=== PATIENT | female | born 1990 | race Caucasian/White ===

== ENCOUNTER 2021-05-19 05:07 | Inpatient (IN) | payer SELFPAY ==
[2021-05-19] VITALS (17 sets, daily range): BP systolic 92–121; BP diastolic 56–71; PULSE 56–82; RESP 14–24; TEMP 36.3–37.2; O2SAT 94–100; BMI 23.5
--- NOTE | 2021-05-19 05:15 | W.ED.ABDPA2 ---
HPI - Abdominal Pain General: Chief Complaint: Abdominal Pain Stated Complaint: PELVIC PAIN/ VAGINAL BLEEDING Time Seen by Provider: 05/19/21 05:08 Source: patient and EMS Mode of arrival: EMS Limitations: no limitations History of Present Illness: HPI narrative: 30-year-old female who G1, P0 states she is roughly 6 7 weeks . Patient transferred here from [facility] for ectopic . Patient there had an ultrasound that showed complex mass the left ovary without intrauterine and had fluid in the cul-de-sac. Patient was accepted here by our OB physician Dr. Dent. Patient states her pain is currently a 2 out of 10 after fentanyl. She had no vomiting or diarrhea or syncope. Associated Symptoms: Denies chills, dysuria and fever(s) Review of Systems Const: Denies: fever(s), chills, body aches or change in appetite Eyes: Denies: blurry vision or eye discomfort ENMT: Denies: throat pain or dental pain Card: Denies: chest pain Resp: Denies: dyspnea GI: Reports: abdominal pain : Denies: dysuria Musc: Denies: neck pain or back pain Skin/Breast: Denies: rash Neuro: Denies: headache(s) Psych: Denies: depression Michele/Lymph: Denies: easy bruising All/Imm: Denies: urticaria Physical Exam Const: COMMON NORMALS: no acute distress, patient oriented x3 and healthy appearing HENMT: COMMON NORMALS: normocephalic and atraumatic HEAD & SCALP: normocephalic and atraumatic Eye: COMMON NORMALS: Equal, round and reactive pupils present and EOMs intact bilaterally PUPIL: Yes Equal, round and reactive pupils present Neck/C-Spine: COMMON NORMALS: full ROM and supple Chest: COMMONS NORMALS: normal inspection of the chest and normal palpation of entire chest wall Resp: COMMON NORMALS: normal respiratory effort, No retractions, No use of accessory muscles and clear to auscultation bilaterally AUSCULTATION: clear to auscultation bilaterally Cardio: COMMON NORMALS: regular rate, regular rhythm and No murmurs present (Cardio) RATE: regular rate RHYTHM: regular rhythm GI: COMMON NORMALS: Normal to inspection, nondistended, normoactive bowel sounds present, Soft to palpation, non-tender and no masses PALPATION: Yes Soft to palpation OTHER: lower abdominal tenderness Extremity: COMMON NORMALS: normal to inspection and full ROM Neuro: COMMON NORMALS: patient oriented x3, moves all extremities and no focal motor deficits Psych: COMMON NORMALS: mental status grossly normal, Normal thought process present and cooperative THOUGHT PROCESS: Normal thought process present Skin: COMMON NORMALS: no rashes or lesions noted and no wounds GENERAL SKIN EXAM: no rashes or lesions noted Course Vital Signs: Vital signs: Vital Signs Temperature 97.3 F L 05/19/21 05:07 Pulse Rate 82 05/19/21 05:07 Respiratory Rate 16 05/19/21 05:07 Blood Pressure 103/58 05/19/21 05:07 Pulse Oximetry 99 05/19/21 05:07 MDM - Abdominal Pain MDM Narrative: Medical decision making narrative: Patient presents here with a likely ectopic . Patient is being taken to the OR by Dr. Dent. Patient is stable here with a normal blood pressure. Discharge Plan Discharge Patient Disposition: Admitted As Inpatient Clinical Impression: Ectopic Qualifiers: Location of ectopic : unspecified location Intrauterine status: without intrauterine Qualified Code(s): O00.90 - Unspecified ectopic without intrauterine Condition: Stable Coding Level of Care Code ED General Manager [employer] for Neelima Deras
[2021-05-19 05:21] LABS: Basophils # 0.1 10^3/uL (0.0-0.1); Basophils % 0.4 %; Eosinophils # 0.1 10^3/uL (0.0-0.8); Eosinophils % 0.5 %; Hematocrit 30.7 % (37.0-47.0); Hemoglobin 9.9 g/dL (11.5-15.3); Lymphocytes # 2.2 10^3/uL (0.8-4.8); Lymphocytes % 18.1 %; Mean Corpuscular HGB Conc 32.2 g/dL (30.0-36.0); Mean Corpuscular Hemoglobin 30.6 pg (28.0-34.0); Mean Corpuscular Volume 94.8 fL (81-99); Mean Platelet Volume 9.7 fL (7.4-10.4); Monocytes # 0.9 10^3/uL (0.2-0.9); Monocytes % 7.6 %; Neutrophils # 8.79 10^3/uL (1.8-7.7); Neutrophils % 73.1 %; Nucleated Red Blood Cells % 0 %; Platelet Count 232 10^3/cmm (130-400); Red Blood Count 3.24 10^6/uL (4.1-5.3); Red Cell Distribution Width 12.7 % (12.1-15.1)
--- NOTE | 2021-05-19 05:38 | PM.CONSULT ---
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 She reports that she has not started care yet. She had a positive test and started spotting about 3 weeks ago. Tonight, her bleeding increased a little bit, but she had increased pain. she had two ultrasounds which showed a likely left ectopic . The last ultrasound showed a hemoperitoneum. She was transferred her for surgery. She denies any medical problems. Review of Systems General: Reports: 10 or more systems reviewed and unremarkable except in HPI and below Meds/Allergies Home Medications and Allergies Home Medications Medication Instructions Recorded Confirmed Last Taken Type No Known Home Medications 05/19/21 05/19/21 Unknown History Allergies Allergy/AdvReac Type Severity Reaction Status Date / Time No Known Allergies Allergy Verified 05/19/21 05:13 [facility] Acute Female Reproductive History: : 1 Vitals/I&O/Wt Last Vital Signs Temp 97.3 F L 05/19/21 05:07 Pulse 82 05/19/21 05:07 Resp 16 05/19/21 05:07 BP 103/58 05/19/21 05:07 Pulse Ox 99 05/19/21 05:07 Weight last 48 hrs Weight 150 lb Physical Exam Const: COMMON NORMALS: average body habitus, patient oriented x3, no limitations, healthy appearing, alert and well nourished GENERAL APPEARANCE: cooperative, well kempt, well developed and well hydrated; not comfortable NUTRITIONAL APPEARANCE: thin ORIENTATION/CONSCIOUSNESS: Yes awake, Yes oriented to place and Yes oriented to time Neck/C-Spine: COMMON NORMALS: full ROM and supple Resp: COMMON NORMALS: normal respiratory effort EFFORT & INSPECTION: Yes able to speak in complete sentences Cardio: COMMON NORMALS: regular rate and regular rhythm RATE: regular rate RHYTHM: regular rhythm GI: INSPECTION: Yes normal to inspection PALPATION: Yes Firmness to palpation present (GI), Yes Tenderness to palpation present (GI), Yes Guarding due to palpation present (GI) and Yes Other GI palpation findings present (+ rebound tenderness on left) Extremity: COMMON NORMALS: no clubbing, cyanosis or edema and no calf tenderness Neuro: COMMON NORMALS: patient oriented x3 SENSORIUM/ORIENTATION: Yes alert, Yes oriented to place and Yes oriented to time Psych: COMMON NORMALS: mental status grossly normal, Normal thought process present, cooperative, normal affect, speech normal and activity/motor behavior normal APPEARANCE: Yes grossly normal and Yes well kempt ATTITUDE: Yes calm and Yes engaged ACTIVITY/MOTOR BEHAVIOR: Yes appropriate eye contact SPEECH: Yes normal speech THOUGHT PROCESS: Normal thought process present A&P Assessment and plan (1) Ectopic : Plan laparoscopic removal of left ectopic Status: Acute Qualifiers: Intrauterine status: without intrauterine Location of ectopic : unspecified location Qualified Code(s): O00.90 - Unspecified ectopic without intrauterine Coding Level of Care Code Acute City Auditor for Chg Fwd Diagnoses Ectopic O00.90 Intrauterine status: without intrauterine Location of ectopic : unspecified location
[2021-05-19 05:43] LABS: Alanine Aminotransferase 7 U/L (0-33); Albumin Level 3.6 g/dL (3.5-5.2); Alkaline Phosphatase 56 IU/L (35-105); Anion Gap 10.9 (5-19); Aspartate Amino Transferase 14 U/L (0-32); Blood Urea Nitrogen 8 mg/dL (6-20); Calcium 7.9 mg/dL (8.5-10.5); Carbon Dioxide 23 mmol/L (22-29); Chloride 106 mmol/L (98-107); Globulin 2.5 g/dL (1.3-4.6); Glucose 106 mg/dL (65-115); Osmolality Calculated 281 mOsm/kg (285-295); Potassium 3.9 mmol/L (3.5-5.1); Sodium 136 mmol/L (136-145); Total Bilirubin 0.6 mg/dL (0.15-1.2); Total Protein 6.1 g/dL (6.6-8.7)
--- NOTE | 2021-05-19 06:14 | ANES.PREANE2 ---
Pre-Anesthetic Assessment Pre-Anesthetic Assessment: Height/Weight: Height 1.7 m Weight 68.039 kg Temp Pulse Resp BP Pulse Ox 97.3 F L 82 16 92/58 99 05/19/21 05:07 05/19/21 05:07 05/19/21 05:07 05/19/21 05:52 05/19/21 05:07 Preop Diagnosis: ruptured ectopic Proposed Procedure: Operation Date: 05/19/21 06:30 Proposed Procedures p Laparoscopic Ovarian Cystectomy(Not Applicable) - Jie Dent MD Familial anesthetic complications: None Was Beta Tonie taken within 24 hours: N/A Was Clonidine taken within 24 hours: N/A Last intake: NPO > 8hrs Social: Social History: No alcohol and No tobacco Exam: Pre-Anes Outpt Exam: alert, oriented x 3, clear to auscultation bilaterally and regular rate & rhythm Airway: Cervical ROM: WNL MP: 1 Dentition: Full Anesthetic Plan: ASA status: 1E Anesthesia: General Risk of > 500 ml blood loss (7ml/kg in children): No PFSH Anesthesia Female Reproductive History: : 1 Data Anesthesia CBC & Chem 7: 05/19/21 05:12 05/19/21 05:12 Other Labs: Laboratory Results - last 48 hr 05/19/21 05/19/21 05:12 05:12 WBC 12.0 H RBC 3.24 L Hgb 9.9 L Hct 30.7 L MCV 94.8 MCH 30.6 MCHC 32.2 RDW 12.7 Plt Count 232 MPV 9.7 Neut % (Auto) 73.1 Lymph % (Auto) 18.1 [place] % (Auto) 7.6 Eos % (Auto) 0.5 Baso % (Auto) 0.4 Neut # (Auto) 8.79 H Lymph # (Auto) 2.2 [place] # (Auto) 0.9 Eos # (Auto) 0.1 Baso # (Auto) 0.1 Nucleated RBC % (auto) 0 Nucleated RBCs # 0.0 Sodium 136 Potassium 3.9 Chloride 106 Carbon Dioxide 23 Anion Gap 10.9 BUN 8 Creatinine 0.5 GFR Calculation 143.0 H Glucose 106 Calculated Osmolality 281 L Calcium 7.9 L Total Bilirubin 0.6 AST 14 ALT 7 Alkaline Phosphatase 56 Total Protein 6.1 L Albumin 3.6 Globulin 2.5 Cardiac Studies: No Data to Display
--- NOTE | 2021-05-19 09:24 | PM.OP ---
Operative Report Date of procedure: May 19, 2021 Pre-op Diagnosis: ruptured ectopic Post-op diagnosis: same Post-op Findings: Ruptured left ectopic . Severe pelvic adhesions likely due to endometriosis Procedure Done: laparoscopy, converted to laparotomy and left salpingectomy Specimens removed/disposition: left fallopian tube to pathology Surgeon: Jie Dent Anesthesia: General Estimated blood loss (mL): 100 IV fluids (mL): 1,400 Urine output (mL): 1,000 Complications: none Findings: severe pelvic adhesions of bowel, abdominal wall, uterus, tubes and ovaries. difficulty determining structures due to pelvic adhesions. Condition: stable Disposition: floor Brief History: The patient presented from an [facility] for a suspected ruptured ectopic Procedure: The patient was taken to the operating room where general anesthesia was administered and found to be adequate. She was prepped and draped in the normal sterile fashion in the dorsal lithotomy position in [facility]. A weighted speculum was placed into the vagina and the anterior lip of the cervix grasped with a single-tooth tenaculum. A ZUMI uterine manipulator was placed. A Solorzano catheter was placed. The weighted speculum was removed. Attention was turned to the abdomen after the gloves were changed. A 5 mm infraumbilical incision was made and carried down to the underlying layer of fascia. In spite of several attempts, I was unable to place the 5 mm trocar into the abdomen. A larger incision was made. The fascia was grasped and a 10 mm Briseno sleeve was placed. The pelvis was visualized and found to be full of blood. A 5 mm port was placed on the left. Due to the extensive adhesions, the incision was too close to the pelvis. It was removed and a higher trocar was placed. The pelvis was copiously irrigated the the clotted blood removed. The adhesions were so dense that the anatomy could not be identified. The decision was made to open the patient. The trochars were removed under direct visualization and the abdomen desufflated. The uterine manipulator was removed as well. The Solorzano catheter was left in place.. The fascia was closed with O-Vicryl in the abdominal incision. The other incisions were closed using 3-0 Vicryl and skin glue. A small Pfannenstiel skin incision was made and carried down to the underlying layer of fascia. The fascia was nicked in the midline and extended laterally with the [place] scissors. The fascia was then tented up and the rectus muscles dissected off sharply. The rectus muscles were in the midline and the abdomen entered bluntly with the digit. This peritoneal incision was extended superiorly and inferiorly with good visualization of the bladder. The blood and clot were suctioned from the abdomen. I could not see properly and there was continued bleeding. The incision was extended to a full Pfannenstiel. The O'Marco A-O'Fonseca retractor was placed and the bowel packed away. There were dense adhesions of the bowel and all pelvic structures to each other and the pelvic sidewall as well as the abdomen. I could make out the fimbria of the left fallopian tube and the remainder of the structures weren't identifiable due to adhesions. The fallopian tube was dissected off of the pelvic sidewall. The POC were extruded from the tube and sent to pathology. The fallopian tube was clamped, cut and suture ligated. There was excellent hemostasis. The pelvis was copiously irrigated. The right adnexa could not be identified due to dense adhesions. The uterus appeared to be normal, but densely adherent to the right pelvic sidewall. The O'Marco A-O'Fonseca retractor as well as the packing was removed. The peritoneum was closed with 2-0 Monocryl in a running fashion. The fascia was closed with 0 Vicryl in a running fashion with 2 separate sutures overlapping in the midline. The skin was closed with absorbable triston. The patient tolerated the procedure well. Sponge lap and needle counts were correct x2. She was taken to the recovery room in stable condition.
[2021-05-19] MEDS: fentaNYL 50 mcg/mL INJ 2mL IVP ×2 (10:00→10:05)
[2021-05-19] MEDS: ketorolac 30 mg/mL INJ IVP ×3 (11:15→22:05)
[2021-05-19] MEDS: HYDROcodone-acetaminophen 5-325 mg Tablet PO (11:15)
[2021-05-19] MEDS: dextrose 5%-lactated ringers 1,000 ML 125 ML IV (13:53)
[2021-05-19] MEDS: docusate sodium 100 mg Capsule PO (17:47)
[2021-05-20 03:48] VITALS: BP 94/62; PULSE 80; RESP 18; TEMP 37.2; O2SAT 99
[2021-05-20] MEDS: ketorolac 30 mg/mL INJ IVP (03:54)
[2021-05-20 05:24] LABS: Hematocrit 23.8 % (37.0-47.0); Hemoglobin 7.8 g/dL (11.5-15.3); Mean Corpuscular HGB Conc 32.8 g/dL (30.0-36.0); Mean Corpuscular Hemoglobin 31.1 pg (28.0-34.0); Mean Corpuscular Volume 94.8 fL (81-99); Mean Platelet Volume 10.4 fL (7.4-10.4); Platelet Count 142 10^3/cmm (130-400); Red Blood Count 2.51 10^6/uL (4.1-5.3); Red Cell Distribution Width 13.1 % (12.1-15.1); White Blood Count 13.4 10^3/uL (4.0-10.0)
--- NOTE | 2021-05-20 07:30 | PC.NURSE ---
Dr. Dent at bedside at this time. Dr. Dent removed dressing. Dr. Dent asked pt if she would like to go home, pt reported, yes, I would like to if I can. Dr. Luevano reported she would discharge pt. Dr. Luevano discussed with pt that she should not lift anything heavy, nothing heavier than a gallon of milk. This nurse asked Dr. Dent if pt should be on pelvic rest for 6 weeks, Dr. Dent responded, oh yes, most definitely, that should be in the post op instructions. No other education was provided at this time.
--- NOTE | 2021-05-20 07:51 | P.DS_ITS ---
Discharge Providers Date of Admission: 05/19/21 09:48 Date of Discharge: May 20, 2021 Attending Provider at Admission: Jie Dent MD Attending Provider at Discharge: Jie Dent MD Diagnoses at Discharge Discharge Diagnosis (1) Ectopic : Status: Acute Qualifiers: Intrauterine status: without intrauterine Location of ectopic : unspecified location Qualified Code(s): O00.90 - Unspecified ectopic without intrauterine Reason for Visit Reason for Visit: PELVIC PAIN/ VAGINAL BLEEDING Hospital Course Hospital Course The patient was admitted from the ER for emergent surgery. she had exploratory laparoscopy which was converted to laparotomy due to severe endometriosis. She did well postoperatively and requested discharge on day #1 Physical Exam Narrative: EXAM NARRATIVE: The patient is doing well today. She is requesting discharge. She is tolerating a regular diet. She states that her pain is well controlled. Const: COMMON NORMALS: no acute distress, average body habitus, patient oriented x3, no limitations, healthy appearing, alert and well nourished GENERAL APPEARANCE: cooperative, comfortable, well kempt and well developed ORIENTATION/CONSCIOUSNESS: Yes awake, Yes oriented to person, Yes oriented to place and Yes oriented to time Resp: COMMON NORMALS: normal respiratory effort EFFORT & INSPECTION: Yes able to speak in complete sentences GI: COMMON NORMALS: Soft to palpation and non-tender PALPATION: Yes Soft to palpation Extremity: COMMON NORMALS: no clubbing, cyanosis or edema and no calf tenderness Neuro: COMMON NORMALS: patient oriented x3 SENSORIUM/ORIENTATION: Yes alert, Yes oriented to person, Yes oriented to place and Yes oriented to time Psych: APPEARANCE: Yes well kempt Skin: WOUNDS: Yes surgical site (clean/dry/intact) Urinary Catheter Management^: F: Cath Placed During This Visit: yes, but has since been removed by the nurse Reason for Continuing Indwelling Catheter: Decision to DC Catheter Urinary Catheter Date of Insertion: 05/19/21 Urinary Catheter Time of Insertion: 07:02 Date Urinary Catheter Removed: 05/20/21 Time Urinary Catheter Discontinued: 04:00 Discharge Data Data Completed and Pending: Pending at discharge Category Date Time Status ES surgery / GI i mages Routine Exams 05/19/21 05:59 Taken Pathology: Surgic al [PTH] Routine Pth 05/19/21 09:46 Ordered Labs from last 24 hours 05/20/21 05:14 WBC 13.4 H RBC 2.51 L Hgb 7.8 L Hct 23.8 L MCV 94.8 MCH 31.1 MCHC 32.8 RDW 13.1 Plt Count 142 MPV 10.4 Vitals: Last Vital Signs Temp 99.0 F 05/20/21 03:48 Pulse 80 05/20/21 03:48 Resp 18 05/20/21 03:48 BP 94/62 05/20/21 03:48 Pulse Ox 99 05/20/21 03:48 Discharge Plan Discharge Patient Disposition: Home Condition: Stable Prescriptions: New hydrocodone-acetaminophen 5-325 mg Tablet 1 tab PO Q4H PRN (Reason: Moderate To Severe Pain) Qty: 30 RF: 0 Discharge Orders: Discharge Order (Routine); Ordered 05/20/21 Ordered By: Jie Dent Referrals: Jie Dent MD [Physician] - (You have a one week post op appointment with Dr. Dent on Thursday May 27, 2021 at 7:45 am. You have a 6 week post op appointment with Dr. Dent on Thursday at 8:30 am.) Discharge Diet: Usual diet Discharge Activity: Limit activity as instructed Patient Instructions: Iron Supplements (By mouth), Hydrocodone/Acetaminophen (By mouth), Ectopic , Endometriosis (DC), Iron Rich Diet (DC), Acute Wound Care (DC), Anemia (GEN), OB Discharge Report, Opioid Safety, OP Post- Operative Instructions Activity Restrictions/Additional Instructions: Pelvic Rest for 6 weeks No swimming until released by to do so baths are not recommended; showers are okay. Discharge Attestations Time Spent in Discharge Care*: greater than 30 min Quality Metrics Clinical Quality Measures During this hospital stay, did patient experience: None Coding Level of Care Code Acute Chg FW DC note Diagnoses Ectopic O00.90 Intrauterine status: without intrauterine Location of ectopic : unspecified location
[2021-05-20] MEDS: ibuprofen 800 mg tablet PO (10:17)
[2021-05-20] MEDS: docusate sodium 100 mg Capsule PO (10:17)
[2021-05-20 10:21] VITALS: BP 93/53; PULSE 76; RESP 16; TEMP 36.6; O2SAT 100
[2021-05-20 12:10] VITALS: BP 105/68; PULSE 75; RESP 16; TEMP 36.6; O2SAT 100
[2021-05-20 12:12] VITALS: BP 105/68; PULSE 75; RESP 16; TEMP 36.6; O2SAT 100
== END 2021-05-20 12:12 | disposition home or self-care (01) | DRG 818 ==
LOC: ER 05:16 → OR 05:46 → OBGYN 05-20 06:54
PROVIDERS: Admitting Provider Obstetrics & Gynecology; Emergency Provider Emergency Medicine; Visit Provider Obstetrics & Gynecology
PROC: 0WJJ4ZZ Inspection of Pelvic Cavity, Percutaneous Endoscopic Approach (ICD-10-PCS; CPT 58662; principal; 2021-05-19 06:30)
PROC: 0WJJ4ZZ Inspection of Pelvic Cavity, Percutaneous Endoscopic Approach (ICD-10-PCS; CPT 49000; 2021-05-19 06:30)
PROC: 0WJJ4ZZ Inspection of Pelvic Cavity, Percutaneous Endoscopic Approach (ICD-10-PCS; CPT 58700; 2021-05-19 06:30)
DX: O00.90 Unspecified ectopic pregnancy without intrauterine pregnancy (principal); O08.89 Other complications following an ectopic and molar pregnancy; N80.9 Endometriosis, unspecified; Z3A.00 Weeks of gestation of pregnancy not specified
CPT/HCPCS: 36415; 80053; 85025; 85027; 86850; 86900; 88305; 99285; J0330; J0690; J1100; J1200; J1885; J2405; J2704; J2710; J3010; J3490

== ENCOUNTER 2021-05-23 04:56 | Inpatient (IN) | payer SELFPAY ==
[2021-05-23] VITALS (13 sets, daily range): BP systolic 96–117; BP diastolic 52–82; PULSE 72–90; RESP 15–20; TEMP 36.8–37.3; O2SAT 98–100; BMI 23.5
--- NOTE | 2021-05-23 05:22 | CTR_ITS ---
PROCEDURE INFORMATION: Exam: CTA Abdomen and Pelvis With Contrast Exam date and time: 05/23/2021 5:22 AM Age: 30 years old Clinical indication: Abdominal pain; Localized; Lower; Prior surgery; Surgery date: 3-7 days post-operative; Patient HX: Persistent pelvic pain S/P salpingectomy due to ectopic on 05/19/2021. ; Additional info: Evaluate for bleeding, recent elap for ectopic preg TECHNIQUE: Imaging protocol: Computed tomographic angiography of the abdomen and pelvis with contrast material. 3D rendering (Not supervised by radiologist): MIP and/or 3D reconstructed images were created by the technologist. Total images: 463 Radiation optimization: All CT scans at this facility use at least one of these dose optimization techniques: automated exposure control; mA and/or kV adjustment per patient size (includes targeted exams where dose is matched to clinical indication); or iterative reconstruction. Contrast material: OMNI 350; Contrast volume: 95 ml; Contrast route: INTRAVENOUS (IV); COMPARISON: ES surgery / GI images 05/19/2021 5:57 AM RADIATION DOSE METRICS: Total DLP (mGy-cm): 788.19 FINDINGS: Aorta: No aortic aneurysm. No aortic dissection. Celiac trunk and mesenteric arteries: No occlusion or significant stenosis. Renal arteries: No occlusion or significant stenosis. Right iliac arteries: No occlusion or significant stenosis. Left iliac arteries: No occlusion or significant stenosis. Liver: No mass. Gallbladder and bile ducts: Unremarkable. No calcified stones. No ductal dilation. Pancreas: Unremarkable. No mass. No ductal dilation. Spleen: Unremarkable. No splenomegaly. Adrenal glands: Unremarkable. No mass. Kidneys and ureters: Unremarkable. No solid mass. No hydronephrosis. Stomach and bowel: Prominent fluid in small bowel suggestive of infectious/inflammatory enteritis or ileus. Small bowel distension measures 3.8 cm in greatest diameter and ileum appears collapse. An early obstruction cannot be excluded. Fecal matter is noted within the colon. Appendix: No evidence of appendicitis. Intraperitoneal space: Small amount of free air s and minimal fluid within the abdomen felt to be related to recent surgery. Lymph nodes: Unremarkable. No enlarged lymph nodes. Urinary bladder: Unremarkable. No mass. Reproductive: Unremarkable as visualized. Bones/joints: No acute fracture. No dislocation. Soft tissues: Postoperative anterior abdominal wall. Other findings: No active bleeding detected. CT/CT angio abdomen pelvis 68060 IMPRESSION: 1. Small amount of free air s and minimal fluid within the abdomen felt to be related to recent surgery. 2. Prominent fluid in small bowel suggestive of infectious/inflammatory enteritis or ileus. Small bowel distension measures 3.8 cm in greatest diameter and ileum appears collapse. An early obstruction cannot be excluded. Fecal matter is noted within the colon. Radiation Dose CTDIVOL = (mGy): DLP = 788.19 (mGy-cm)
--- NOTE | 2021-05-23 05:26 | W.ED.GENADLT ---
Documented by User: Carolyn Chaudhari MD 05/24/21 08:13 HPI - General Adult General: Chief complaint: ER Hold Stated complaint: ABDOMINAL PAIN Time Seen by Provider: 05/23/21 05:09 History of Present Illness: HPI narrative: Patient is a 30-year-old female that recent ELAP for L sided ectopic c/b 1L of blood loss performed on 05/[address] Luevano (next appt 05/27) presenting to the emergency room with complaints of worsening abdominal pain x 3 days post-op. Since patient's appointment is not until 05/27, patient was told to go to the emergency room for evaluation of abdominal pain. She denies any changes in postoperative scars including dehiscence, drainage, bleeding from the scar. In addition, patient denies any melena/hematochezia, fever/chill. She communicated findings with her provider who instructed patient to go to the emergency room for CT evaluation for any persistent abdominal pain and swelling. Onset:4 days ago Duration:4 days Location:home Severity:moderate Review of Systems Narrative: Constitutional: No fever, no chills. HEENT: No vision changes CV: No chest pain, no palpitations PULM: no cough, no dyspnea. GI: No abdominal pain, no N/V/D. : No dysuria MSKEL: No muscle pain SKIN: No new rashes, no lesions. NEURO: No headache, no focal weakness. HEME: No visible bruises PSYCH: Normal mood [facility] Female Reproductive History: Date of last menstrual period: 03/18/21 Physical Exam Narrative: EXAM NARRATIVE: Head: Atraumatic Eyes: PERRL, conjunctiva without injection ENT: Dry membrane moist NECK: Supple, ROM intact LUNGS: LCTAB, no crackles/rhonchi CV: RRR ABDOMEN: Soft, +diffuse tenderness throughout the abdomen worse along the incisoni sites, +fresh incision scar in the lower abdomen without drainage/dehisccence, no guarding no rebound tenderness, EXTREMITY: Normal ROM SKIN: No rash or erythema NEURO: Awake and alert, no focal motor deficits PSYCH: Normal mood and affect Course Vital Signs: Vital signs: Vital Signs Temperature 98.2 F 05/24/21 04:00 Pulse Rate 70 05/24/21 04:00 Respiratory Rate 15 05/23/21 21:46 Blood Pressure 103/68 05/24/21 04:00 Pulse Oximetry 98 05/24/21 04:00 MDM - General Adult MDM Narrative: Medical decision making narrative: 30-year-old female status post ex lap for L ectopic presenting to the emergency room with complaints of worsening abdominal pain. On exam, patient is noted to be hemodynamically stable. Dry on exam. Patient appears to be dry/clean/intact. Given specialist concern for worsening pain and possible bleeding, will evaluate with blood work and CTA abdomen and pelvis. Pain controlled with fentanyl in the ED. Case signed Dr. Rojo. Lab Data: Labs: Lab Results 05/23/21 05/23/21 05/23/21 Range/Units 05:45 05:45 05:45 WBC 7.7 (4.0-10.0) 10^3/ uL RBC 3.13 L (4.1-5.3) 10^6/u L Hgb 9.5 L (11.5-15.3) g/dL Hct 30.2 L (37.0-47.0) % MCV 96.5 (81-99) fL MCH 30.4 (28.0-34.0) pg MCHC 31.5 (30.0-36.0) g/dL RDW 13.0 (12.1-15.1) % Plt Count 321 (130-400) 10^3/c mm MPV 9.8 (7.4-10.4) fL Neut % (Auto) 67.5 % Lymph % (Auto) 21.0 % [place] % (Auto) 7.4 % Eos % (Auto) 3.4 % Baso % (Auto) 0.3 % Neut # (Auto) 5.17 (1.8-7.7) 10^3/u L Lymph # (Auto) 1.6 (0.8-4.8) 10^3/u L [place] # (Auto) 0.6 (0.2-0.9) 10^3/u L Eos # (Auto) 0.3 (0.0-0.8) 10^3/u L Baso # (Auto) 0.0 (0.0-0.1) 10^3/u L Nucleated RBC % (a uto) 0 % Nucleated RBCs # 0.0 /100WBC PT 13.20 (12.1-14.9) SECO NDS INR 0.98 (0.8-1.2) APTT 27.3 (23.9-36.7) SECO NDS Sodium 140 (136-145) mmol/L Potassium 4.2 (3.5-5.1) mmol/L Chloride 103 (98-107) mmol/L Carbon Dioxide 28 (22-29) mmol/L Anion Gap 13.2 (5-19) BUN 10 (6-20) mg/dL Creatinine 0.5 (0.5-0.9) mg/dL GFR Calculation 143.0 H (90-130) mL/min Glucose 98 (65-115) mg/dL Calculated Osmolal ity 289 (285-295) mOsm/k g Calcium 8.6 (8.5-10.5) mg/dL Urine Color (Yellow) Urine Appearance (CLEAR) Urine pH (5-7) Ur Specific Gravit y (1.005-1.030) Urine Protein (Negative) Urine Glucose (UA) (Normal) Urine Ketones (Negative) Urine Blood (Negative) Urine Nitrate (Negative) Urine Bilirubin (Negative) Urine Urobilinogen (Negative) mg/dL Ur Leukocyte Sarah ase (Negative) Blood Type Rho(D) Type Antibody Screen 05/23/21 05/23/21 Range/Units 05:45 07:42 WBC (4.0-10.0) 10^3/ uL RBC (4.1-5.3) 10^6/u L Hgb (11.5-15.3) g/dL Hct (37.0-47.0) % MCV (81-99) fL MCH (28.0-34.0) pg MCHC (30.0-36.0) g/dL RDW (12.1-15.1) % Plt Count (130-400) 10^3/c mm MPV (7.4-10.4) fL Neut % (Auto) % Lymph % (Auto) % [place] % (Auto) % Eos % (Auto) % Baso % (Auto) % Neut # (Auto) (1.8-7.7) 10^3/u L Lymph # (Auto) (0.8-4.8) 10^3/u L [place] # (Auto) (0.2-0.9) 10^3/u L Eos # (Auto) (0.0-0.8) 10^3/u L Baso # (Auto) (0.0-0.1) 10^3/u L Nucleated RBC % (a uto) % Nucleated RBCs # /100WBC PT (12.1-14.9) SECO NDS INR (0.8-1.2) APTT (23.9-36.7) SECO NDS Sodium (136-145) mmol/L Potassium (3.5-5.1) mmol/L Chloride (98-107) mmol/L Carbon Dioxide (22-29) mmol/L Anion Gap (5-19) BUN (6-20) mg/dL Creatinine (0.5-0.9) mg/dL GFR Calculation (90-130) mL/min Glucose (65-115) mg/dL Calculated Osmolal ity (285-295) mOsm/k g Calcium (8.5-10.5) mg/dL Urine Color Straw (Yellow) Urine Appearance Clear (CLEAR) Urine pH 8 H (5-7) Ur Specific Gravit y 1.010 (1.005-1.030) Urine Protein Neg (Negative) Urine Glucose (UA) Norm (Normal) Urine Ketones Negative (Negative) Urine Blood Neg (Negative) Urine Nitrate Negative (Negative) Urine Bilirubin Neg (Negative) Urine Urobilinogen Norm (Negative) mg/dL Ur Leukocyte Sarah ase Negative (Negative) Blood Type O Positive Rho(D) Type Positive / 4+ Antibody Screen Negative Discharge Plan Discharge Patient Disposition: Admitted As Inpatient Admit Provider: Noel Collier Clinical Impression: Partial small bowel obstruction Condition: Stable Sign Out Sign Out Data: Patient Sign Out occurred on 05/23/21 at 06:26. Patient's care was discussed, and care was transferred from to Zheng Rojo DO. Coding Level of Care Code ED Insurance Law Specialist for [employer] Documented by User: Zheng Rojo DO 05/23/21 09:05 HPI - General Adult General: Chief complaint: ER Hold Stated complaint: ABDOMINAL PAIN Time Seen by Provider: 05/23/21 05:09 Course Vital Signs: Vital signs: Vital Signs Temperature 98.2 F 05/24/21 04:00 Pulse Rate 70 05/24/21 04:00 Respiratory Rate 15 05/23/21 21:46 Blood Pressure 103/68 05/24/21 04:00 Pulse Oximetry 98 05/24/21 04:00 MDM - General Adult MDM Narrative: Medical decision making narrative: Reviewed CT and labs. Examined patient clinically patient has a bowel obstruction. Discussed with Dr. West on-call for gynecology also discussed Dr. Collier on for surgery Dr. Collier will admit the patient. Orders are written. Lab Data: Labs: Lab Results 05/23/21 05/23/21 05/23/21 Range/Units 05:45 05:45 05:45 WBC 7.7 (4.0-10.0) 10^3/ uL RBC 3.13 L (4.1-5.3) 10^6/u L Hgb 9.5 L (11.5-15.3) g/dL Hct 30.2 L (37.0-47.0) % MCV 96.5 (81-99) fL MCH 30.4 (28.0-34.0) pg MCHC 31.5 (30.0-36.0) g/dL RDW 13.0 (12.1-15.1) % Plt Count 321 (130-400) 10^3/c mm MPV 9.8 (7.4-10.4) fL Neut % (Auto) 67.5 % Lymph % (Auto) 21.0 % [place] % (Auto) 7.4 % Eos % (Auto) 3.4 % Baso % (Auto) 0.3 % Neut # (Auto) 5.17 (1.8-7.7) 10^3/u L Lymph # (Auto) 1.6 (0.8-4.8) 10^3/u L [place] # (Auto) 0.6 (0.2-0.9) 10^3/u L Eos # (Auto) 0.3 (0.0-0.8) 10^3/u L Baso # (Auto) 0.0 (0.0-0.1) 10^3/u L Nucleated RBC % (a uto) 0 % Nucleated RBCs # 0.0 /100WBC PT 13.20 (12.1-14.9) SECO NDS INR 0.98 (0.8-1.2) APTT 27.3 (23.9-36.7) SECO NDS Sodium 140 (136-145) mmol/L Potassium 4.2 (3.5-5.1) mmol/L Chloride 103 (98-107) mmol/L Carbon Dioxide 28 (22-29) mmol/L Anion Gap 13.2 (5-19) BUN 10 (6-20) mg/dL Creatinine 0.5 (0.5-0.9) mg/dL GFR Calculation 143.0 H (90-130) mL/min Glucose 98 (65-115) mg/dL Calculated Osmolal ity 289 (285-295) mOsm/k g Calcium 8.6 (8.5-10.5) mg/dL Urine Color (Yellow) Urine Appearance (CLEAR) Urine pH (5-7) Ur Specific Gravit y (1.005-1.030) Urine Protein (Negative) Urine Glucose (UA) (Normal) Urine Ketones (Negative) Urine Blood (Negative) Urine Nitrate (Negative) Urine Bilirubin (Negative) Urine Urobilinogen (Negative) mg/dL Ur Leukocyte Sarah ase (Negative) Blood Type Rho(D) Type Antibody Screen 05/23/21 05/23/21 Range/Units 05:45 07:42 WBC (4.0-10.0) 10^3/ uL RBC (4.1-5.3) 10^6/u L Hgb (11.5-15.3) g/dL Hct (37.0-47.0) % MCV (81-99) fL MCH (28.0-34.0) pg MCHC (30.0-36.0) g/dL RDW (12.1-15.1) % Plt Count (130-400) 10^3/c mm MPV (7.4-10.4) fL Neut % (Auto) % Lymph % (Auto) % [place] % (Auto) % Eos % (Auto) % Baso % (Auto) % Neut # (Auto) (1.8-7.7) 10^3/u L Lymph # (Auto) (0.8-4.8) 10^3/u L [place] # (Auto) (0.2-0.9) 10^3/u L Eos # (Auto) (0.0-0.8) 10^3/u L Baso # (Auto) (0.0-0.1) 10^3/u L Nucleated RBC % (a uto) % Nucleated RBCs # /100WBC PT (12.1-14.9) SECO NDS INR (0.8-1.2) APTT (23.9-36.7) SECO NDS Sodium (136-145) mmol/L Potassium (3.5-5.1) mmol/L Chloride (98-107) mmol/L Carbon Dioxide (22-29) mmol/L Anion Gap (5-19) BUN (6-20) mg/dL Creatinine (0.5-0.9) mg/dL GFR Calculation (90-130) mL/min Glucose (65-115) mg/dL Calculated Osmolal ity (285-295) mOsm/k g Calcium (8.5-10.5) mg/dL Urine Color Straw (Yellow) Urine Appearance Clear (CLEAR) Urine pH 8 H (5-7) Ur Specific Gravit y 1.010 (1.005-1.030) Urine Protein Neg (Negative) Urine Glucose (UA) Norm (Normal) Urine Ketones Negative (Negative) Urine Blood Neg (Negative) Urine Nitrate Negative (Negative) Urine Bilirubin Neg (Negative) Urine Urobilinogen Norm (Negative) mg/dL Ur Leukocyte Sarah ase Negative (Negative) Blood Type O Positive Rho(D) Type Positive / 4+ Antibody Screen Negative Discharge Plan Discharge Patient Disposition: Admitted As Inpatient Admit Provider: Noel Collier Clinical Impression: Partial small bowel obstruction Condition: Stable Sign Out Sign Out Data: Patient Sign Out occurred on 05/23/21 at 06:26. Patient's care was discussed, and care was transferred from to Zheng Rojo DO. Coding Level of Care Code ED Insurance Law Specialist for Neelima Deras
[2021-05-23] MEDS: sodium chloride 0.9% 1,000 ML 999 ML IV (05:50)
[2021-05-23] MEDS: fentaNYL 50 mcg/mL INJ 2mL IVP ×2 (05:50→07:11)
[2021-05-23] MEDS: iohexol 350 mg/mL 100 mL Btl IV (06:10)
[2021-05-23 06:15] LABS: Basophils % 0.3 %; Eosinophils # 0.3 10^3/uL (0.0-0.8); Eosinophils % 3.4 %; Hematocrit 30.2 % (37.0-47.0); Hemoglobin 9.5 g/dL (11.5-15.3); Lymphocytes # 1.6 10^3/uL (0.8-4.8); Mean Corpuscular HGB Conc 31.5 g/dL (30.0-36.0); Mean Corpuscular Hemoglobin 30.4 pg (28.0-34.0); Mean Corpuscular Volume 96.5 fL (81-99); Mean Platelet Volume 9.8 fL (7.4-10.4); Monocytes # 0.6 10^3/uL (0.2-0.9); Monocytes % 7.4 %; Neutrophils # 5.17 10^3/uL (1.8-7.7); Neutrophils % 67.5 %; Nucleated Red Blood Cells % 0 %; Platelet Count 321 10^3/cmm (130-400); Red Blood Count 3.13 10^6/uL (4.1-5.3); White Blood Count 7.7 10^3/uL (4.0-10.0)
[2021-05-23 06:22] LABS: INR 0.98 (0.8-1.2)
[2021-05-23 06:23] LABS: Partial Thromboplastin Time 27.3 SECONDS (23.9-36.7)
[2021-05-23 06:48] LABS: Anion Gap 13.2 (5-19); Blood Urea Nitrogen 10 mg/dL (6-20); Calcium 8.6 mg/dL (8.5-10.5); Carbon Dioxide 28 mmol/L (22-29); Chloride 103 mmol/L (98-107); Glucose 98 mg/dL (65-115); Osmolality Calculated 289 mOsm/kg (285-295); Potassium 4.2 mmol/L (3.5-5.1); Sodium 140 mmol/L (136-145)
[2021-05-23] MEDS: morphine 4 mg/mL SDV 1 mL IVP ×2 (08:35→11:51)
[2021-05-23] MEDS: D5-NS 0.45% + KCL 20 mEq 20 MEQ/1,000 ML BAG 100 MEQ IV ×2 (08:46→20:26)
[2021-05-23 08:47] LABS: Add Urine Microscopic? NO; Charge for UA Resulting for Rev
[2021-05-23 09:05] LABS: Bilirubin Urine Neg (Negative); Blood Urine Neg (Negative); Glucose Urine UA Norm (Normal); Ketones Urine Negative (Negative); Leukocyte Esterase Urine Negative (Negative); Nitrate Urine Negative (Negative); Protein Urine Neg (Negative); Urine Appearance Clear (CLEAR); Urine Color Straw (Yellow); Urobilinogen Urine Norm (Negative); pH Urine 8 (5-7)
[2021-05-23] MEDS: morphine 4 mg/mL SDV 1 mL 3 MG IVP (21:46)
[2021-05-24 04:00] VITALS: BP 103/68; PULSE 70; TEMP 36.8; O2SAT 98
--- NOTE | 2021-05-24 06:00 | XR_ITS ---
WS: [id number] Abdomen series, Flat and upright 05/24/2021 Clinical Data: sbo Comparison: CT abdomen and pelvis, 05/23/2021 Findings: No free air is seen beneath the diaphragms. No abnormal intra-abdominal masses or calcifica tions are seen. There is air in the small bowel and colon. No bowel dilatation is present. There is f ecal material in colon. The bladder is full. XR/XR abdomen min 2V 44176 Impression: Moderate generalized ileus, no evidence of small bowel obstruction.
[2021-05-24] MEDS: D5-NS 0.45% + KCL 20 mEq 20 MEQ/1,000 ML BAG 100 MEQ IV (06:17)
[2021-05-24 07:03] LABS: Basophils % 0.2 %; Eosinophils # 0.3 10^3/uL (0.0-0.8); Eosinophils % 5.8 %; Hematocrit 29.1 % (37.0-47.0); Hemoglobin 9.1 g/dL (11.5-15.3); Lymphocytes # 1.3 10^3/uL (0.8-4.8); Lymphocytes % 26.7 %; Mean Corpuscular HGB Conc 31.3 g/dL (30.0-36.0); Mean Corpuscular Hemoglobin 30.3 pg (28.0-34.0); Mean Platelet Volume 9.5 fL (7.4-10.4); Monocytes # 0.5 10^3/uL (0.2-0.9); Monocytes % 11.2 %; Neutrophils % 55.7 %; Nucleated Red Blood Cells % 0 %; Platelet Count 268 10^3/cmm (130-400); White Blood Count 4.8 10^3/uL (4.0-10.0)
[2021-05-24] MEDS: magnesium citrate Btl 296 mL PO (07:34)
[2021-05-24] MEDS: lactulose oral liq 20 gm/30 mL UDC 10 GM PO ×2 (07:34→19:02)
[2021-05-24 07:37] LABS: Alanine Aminotransferase 17 U/L (0-33); Albumin Level 3.7 g/dL (3.5-5.2); Alkaline Phosphatase 53 IU/L (35-105); Anion Gap 11.9 (5-19); Aspartate Amino Transferase 18 U/L (0-32); Blood Urea Nitrogen 5 mg/dL (6-20); Calcium 8.2 mg/dL (8.5-10.5); Carbon Dioxide 26 mmol/L (22-29); Chloride 103 mmol/L (98-107); Globulin 2.4 g/dL (1.3-4.6); Glucose 101 mg/dL (65-115); Osmolality Calculated 281 mOsm/kg (285-295); Potassium 3.9 mmol/L (3.5-5.1); Sodium 137 mmol/L (136-145); Total Bilirubin 0.7 mg/dL (0.15-1.2); Total Protein 6.1 g/dL (6.6-8.7)
[2021-05-24] MEDS: pantoprazole 40 mg SDV IVP (10:06)
[2021-05-24 10:51] VITALS: BP 113/73; PULSE 83; RESP 16; TEMP 37.1; O2SAT 98
--- NOTE | 2021-05-24 14:24 | PM.PN ---
Subjective Subjective: Interval history: Patient noted significant improvement with enema yesterday, had couple of bowel movements today, denies any nausea or vomiting and she has not needed any pain medications today Vitals/I&O/Wt Last Vital Signs Temp 98.8 F 05/24/21 10:51 Pulse 83 05/24/21 10:51 Resp 16 05/24/21 10:51 BP 113/73 05/24/21 10:51 Pulse Ox 98 05/24/21 10:51 05/23/21 05/24/21 05/24/21 22:59 06:59 14:59 Intake Total 1000 / 2985 985 / 2985 Output Total 900 / 900 Balance 1000 / 2985 985 / 2985 -900 / -900 Weight last 48 hrs Weight 150 lb 0.005 oz Weight 150 lb Physical Exam Narrative: EXAM NARRATIVE: Abdomen: Soft, slightly distended,, nontender, incision clean dry and intact Data : 05/24/21 06:57 05/24/21 06:57 A&P Assessment and plan (1) Partial small bowel obstruction: 30-year-old female status post laparotomy for ectopic who presented with bowel obstruction Patient is hemodynamically stable, no evidence of peritonitis and she is feeling a lot better today 1 bottle of magnesium citrate and milk of molasses enema given Start full liquid diet Lactulose 15 cc p.o. twice daily Hopefully if patient is tolerating a diet and does not have any nausea she could go home tomorrow Status: Acute Attestations Medical Necessity Statement*: Partial SBO requiring 1 more night of inpatient stay Coding Level of Care Code Acute Photovoltaic Installer for Neelima Deras Diagnoses Partial small bowel obstruction K56.600
--- NOTE | 2021-05-24 14:38 | P.HP_ITS ---
Providers/Chief Complaint Admitting Physician: Noel Collier MD Chief Complaint: ABDOMINAL PAIN History of Present Illness Haleigh Campos is a 30 year old female who had emergency laparotomy with left salpingectomy for ectopic on 05/19/2021 and was subsequently discharged on 05/20/2021. Patient presented to the ER with complaints of generalized abdominal pain associate with nausea. She denies any vomiting, fevers or chills. She has not had any drainage from the incision. She states that she had a small bowel movement yesterday. Small amount of drainage per vagina, denies any difficulty with urination Review of Systems General: Reports: 10 or more systems reviewed and unremarkable except in HPI and below Medications/Allergies Home Medications Medication Instructions Recorded Confirmed Last Taken Type hydrocodone-acetaminophen 1 tab PO Q4H PRN #30 tab 05/20/21 05/23/21 Unknown Rx Allergies Allergy/AdvReac Type Severity Reaction Status Date / Time No Known Allergies Allergy Verified 05/23/21 05:07 PFSH Acute PFSH: Medical History (Updated 05/24/21 @ 14:39 by Noel Collier MD) Ectopic Surgical History (Updated 05/24/21 @ 14:39 by Noel Collier MD) S/P laparotomy Left salpingectomy Female Reproductive History: Date of last menstrual period: 03/18/21 Vitals/I&O/Wt Last Vital Signs Temp 98.8 F 05/24/21 10:51 Pulse 83 05/24/21 10:51 Resp 16 05/24/21 10:51 BP 113/73 05/24/21 10:51 Pulse Ox 98 05/24/21 10:51 05/23/21 05/24/21 05/24/21 22:59 06:59 14:59 Intake Total 1000 / 2985 985 / 2985 275 / 275 Output Total 900 / 900 Balance 1000 / 2985 985 / 2985 -625 / -625 Weight last 48 hrs Weight 150 lb 0.005 oz Weight 150 lb Physical Exam Narrative: EXAM NARRATIVE: HEENT: Normocephalic Eye: Sclera /conjunctiva normal Respiratory and chest: Bilateral clear breath sounds on auscultation Cardiovascular: Normal S1 and S2 heart sounds Abdomen: Soft to palpation, generalized tenderness, voluntary guarding, no rigidity, mildly distended, incision clean dry and intact Neurological: Oriented to place person and time Skin: Intact, no lesions appreciated on gross exam Data : 05/24/21 06:57 05/24/21 06:57 A&P Assessment and plan (1) Partial small bowel obstruction: 30-year-old female status post laparotomy for ectopic on 05/19/2021 who presented with bowel obstruction Patient is hemodynamically stable, no evidence of peritonitis. I suspect she has ileus along with constipation which is contributing to her symptoms I reviewed the CT abdomen pelvis on 05/23/2021 which showed small amount of free air and minimal fluid in the abdomen with prominent small bowel loops suggestive of ileus/enteritis and collapsed ileum Admit as inpatient IV fluids Daily labs Abdominal series in the morning Milk of molasses enema today N.p.o. except ice chips Status: Acute Attestations Medical Necessity Statement*: SBO requiring continued inpatient stay Coding Level of Care Code Acute Boat Patcher Plastic for Neelima Deras Diagnoses Partial small bowel obstruction K56.600
[2021-05-24 16:30] VITALS: BP 97/63; PULSE 75; RESP 16; TEMP 36.6; O2SAT 97
[2021-05-24 21:31] VITALS: BP 102/65; PULSE 73; RESP 15; TEMP 36.8; O2SAT 98
[2021-05-25 04:33] VITALS: BP 99/63; PULSE 69; RESP 14; TEMP 37.2; O2SAT 99
--- NOTE | 2021-05-25 08:48 | P.PN_ITS ---
Subjective Subjective: Interval history: Patient had 3-4 bowel movements, denies any nausea, vomiting or abdominal pain, tolerating full liquid diet Vitals/I&O/Wt Last Vital Signs Temp 98.9 F 05/25/21 04:33 Pulse 69 05/25/21 04:33 Resp 14 05/25/21 04:33 BP 99/63 05/25/21 04:33 Pulse Ox 99 05/25/21 04:33 05/24/21 05/25/21 05/25/21 22:59 06:59 14:59 Intake Total 580 / 1721.667 Balance 580 / 821.667 Weight last 48 hrs Weight 150 lb 0.005 oz Physical Exam Narrative: EXAM NARRATIVE: Abdomen: Soft, less distended, nontender, incision clean dry and intact Data : 05/24/21 06:57 05/24/21 06:57 A&P Assessment and plan (1) Partial small bowel obstruction: 30-year-old female status post laparotomy for ectopic on 05/19/2021 who presented with bowel obstruction Patient is hemodynamically stable, no evidence of peritonitis. DC home today Status: Acute Attestations Medical Necessity Statement*: SBO, resolved Coding Level of Care Code Acute Buckle Attaching Machine Operator for [facility] Diagnoses Partial small bowel obstruction K56.600
--- NOTE | 2021-05-25 08:51 | PM.DCS ---
Discharge Providers Date of Admission: 05/24/21 14:44 Date of Discharge: May 25, 2021 Attending Provider at Admission: Noel Collier MD Attending Provider at Discharge: Noel Collier MD Diagnoses at Discharge Discharge Diagnosis (1) Partial small bowel obstruction: Status: Acute Reason for Visit Reason for Visit: ABDOMINAL PAIN Hospital Course Hospital Course Haleigh Campos is a 30 year old female who had emergency laparotomy with left salpingectomy for ectopic on 05/19/2021 and was subsequently discharged on 05/20/2021. Patient presented to the ER with complaints of generalized abdominal pain associate with nausea. She denies any vomiting, fevers or chills. She has not had any drainage from the incision. She states that she had a small bowel movement yesterday. Small amount of drainage per vagina, denies any difficulty with urination Patient was admitted to the hospital for observation, received 2 milk of molasses enema and a bottle of magnesium citrate and subsequently she had resolution of her bowel obstruction and constipation. At time of discharge she was tolerating a full liquid diet, denies any nausea or vomiting. She has not take any pain medications, vital signs are stable. Her incision was clean dry and intact. I have advised to advance her diet as tolerated from full liquid diet over the next couple of days and to maintain aggressive bowel regimen with lactulose 15 cc p.o. twice daily. Patient has a follow-up with Dr. Harrison next week Discharge Data Data Completed and Pending: Completed Studies During Hospitalization Category Date Time Status CT angio abdomen pelvis 08702 Urgen t Cat Scan 05/23/21 05:22 Completed XR abdomen min 2V [id number] Routine Exams 05/24/21 06:00 Completed Vitals: Last Vital Signs Temp 98.9 F 05/25/21 04:33 Pulse 69 05/25/21 04:33 Resp 14 05/25/21 04:33 BP 99/63 05/25/21 04:33 Pulse Ox 99 05/25/21 04:33 Discharge Plan Discharge Patient Disposition: Home Condition: Stable Prescriptions: New ondansetron HCl [Zofran] 4 mg tablet 4 mg PO Q6H PRN (Reason: nausea and vomiting) Qty: 20 RF: 0 lactulose 10 gram/15 mL solution 15 ml PO BID Qty: 237 RF: 2 Continued hydrocodone-acetaminophen 5-325 mg Tablet 1 tab PO Q4H PRN (Reason: Moderate To Severe Pain) Qty: 30 RF: 0 Discharge Orders: Discharge Order (Routine); Ordered 05/25/21 Ordered By: Noel Collier Referrals: Noel Collier MD [Physician] - 2 weeks Discharge Diet: Advance as tolerated and Full LIquid Patient Instructions: Opioid Safety Activity Restrictions/Additional Instructions: Diet Advance to normal diet as tolerated, increase fluid intake as much as possible. Activity Avoid strenuous activity for 2 weeks but continue with daily activities including walking as tolerated. Do not lift more than 10 pounds for 2 weeks Return to work/school You can return to work/ school whenever you feel ready as long as you don?t have to lift more than 10 pounds at work. If you have paperwork that needs to be completed for time off from work, please contact my office Driving You can resume driving once you stop using narcotic pain medications, and transition to non-opioid pain medications like Tylenol, Motrin, Aleve, etc. Medications Pain Take opioid pain medications as prescribed and transition to non-opioid pain medications like Tylenol, Motrin, Aleve etc. over the next few days. The goal of the pain medications is to make the pain bearable and not to be pain free since you recently had surgery. Resume all home medications after surgery as per the medication reconciliation list Nausea Nausea is common after surgery, take nausea medications as needed and stay on a liquid bland diet until nausea resolves. Constipation Take lactulose 15 cc p.o. twice daily with a goal of 2-3 soft loose bowel movements a day, the dose of the medication can be adjusted if having excessive loose stools. Shower It is ok to shower . Do not soak in bathtub, swimming pool or hot tub for 2 weeks. Wound care If glue has been used on your incisions after surgery, the glue on the incision will peel slowly over the next two weeks. The stitches used are dissolvable and will not need to be removed. Do not apply antibiotics or other medications on the incision Problems with the wound: you can develop some redness around the incision from bruising after surgery. If there is increasing pain, redness, tenderness around the incision with or without drainage, please contact my office to rule out an infection. Sometimes the skin at the incisions can separate, resulting in reopening of the wound. Cover the wound with antibiotic cream and sterile dressings and contact my office. Contact physician Call the office at [phone] during office hours or go the Emergency Room ?Fever to 100.4 or greater ?Shaking chills ?Pain that increases over time ?Redness, warmth, or pus draining from incision sites ?Persistent nausea or inability to take in liquids Discharge Attestations Time Spent in Discharge Care*: less than 30 min Quality Metrics Clinical Quality Measures During this hospital stay, did patient experience: None Coding Level of Care Code Acute Tania KEREN BONILLA note Diagnoses Partial small bowel obstruction K56.600
[2021-05-25] MEDS: lactulose oral liq 20 gm/30 mL UDC 10 GM PO (09:10)
[2021-05-25] MEDS: pantoprazole 40 mg SDV IVP (09:11)
[2021-05-25 09:20] VITALS: BP 100/62; PULSE 83; RESP 16; TEMP 36.9; O2SAT 100
== END 2021-05-25 10:15 | disposition home or self-care (01) | DRG 390 ==
LOC: ER 06:26 → ER IP 09:05 → OBGYN 05-24 07:04
PROVIDERS: Emergency Medicine; Admitting Provider Surgery; Emergency Provider Family Medicine; Visit Provider Surgery
DX: K56.600 Partial intestinal obstruction, unspecified as to cause (principal); K59.00 Constipation, unspecified; Z98.890 Other specified postprocedural states; Z90.79 Acquired absence of other genital organ(s)
CPT/HCPCS: 36415; 74019; 74174; 80048; 80053; 81003; 85025; 85610; 85730; 86850; 86900; 96361; 96374; 96375; 96376; 99285; C9113; G0378; J2270; J3010; J7030; Q9967